=== PATIENT | female | born 1980 | race African-American/Black ===

== ENCOUNTER 2016-11-24 11:52 | Emergency (ER) | payer BC ==
[~2016-11-24] VITALS: Ht 172.7 cm; Wt 84.0 kg
[2016-11-24] MEDS ORDERED: HYDROCODONE/ACETAMINOPHEN 5/325MG TABLET PO ONE (13:45)
[2016-11-24] MEDS ORDERED: MORPHINE SULFATE 10 MG/ML CPJ IM ONE (14:45)
[2016-11-24] MEDS ORDERED: ONDANSETRON HCL 4MG/2ML VIAL IM ONE (14:45)
[2016-11-24 15:52] VITALS: BP 124/93
== END 2016-11-24 16:00 | disposition home or self-care (01) ==
LOC: ER 14:47
DX: M54.42 Lumbago with sciatica, left side (principal); M54.41 Lumbago with sciatica, right side; M19.90 Unspecified osteoarthritis, unspecified site; M79.7 Fibromyalgia
CPT/HCPCS: 81025; 96372; 99284; J2270; J2405

== ENCOUNTER 2017-03-04 12:51 | Emergency (ER) | payer BC ==
[~2017-03-04] VITALS: Ht 172.7 cm; Wt 78.0 kg
[2017-03-04] MEDS ORDERED: KETOROLAC 60MG/2ML VIAL IM ONE (14:30)
[2017-03-04] MEDS ORDERED: CYCLOBENZAPRINE 10MG TABLET PO ONE (14:30)
[2017-03-04] MEDS ORDERED: ONDANSETRON 4MG ODT PO ONE (14:45)
[2017-03-04] MEDS ORDERED: MORPHINE SULFATE 10 MG/ML CPJ IM ONE (14:45)
[2017-03-04 15:19] VITALS: BP 124/85
== END 2017-03-04 16:22 | disposition home or self-care (01) ==
LOC: ER 12:51
DX: M54.40 Lumbago with sciatica, unspecified side (principal)
CPT/HCPCS: 96372; 99283; J2270; Q0162; Z7610

== ENCOUNTER 2017-04-26 15:04 | Emergency (ER) | payer BC ==
[~2017-04-26] VITALS: Ht 172.7 cm; Wt 82.0 kg
[2017-04-26 15:45] VITALS: BP 124/79
== END 2017-04-26 19:15 | disposition left against medical advice (07) ==
LOC: ER 15:04
DX: Z53.21 Procedure and treatment not carried out due to patient leaving prior to being seen by health care provider (principal)

== ENCOUNTER 2017-04-27 06:36 | Emergency (ER) | payer BC ==
[~2017-04-27] VITALS: Ht 172.7 cm; Wt 82.0 kg
[2017-04-27] MEDS ORDERED: MORPHINE SULFATE 4 MG/ML CPJ (NOT FOR IM USE) IV STA (10:37)
[2017-04-27] MEDS ORDERED: SODIUM CHLORIDE 0.9% 1,000 ML IV ONE (10:37)
[2017-04-27] MEDS ORDERED: ONDANSETRON HCL 4MG/2ML VIAL IV STA (10:37)
[2017-04-27 11:02] LABS: BASOPHILS % 0.7 % (0.0-2.0); EOSINOPHILS % 0.4 % (0.0-5.0); HEMATOCRIT. 30.7 % (36.0-48.0); HEMOGLOBIN. 9.7 g/dL (12.0-16.0); LYMPHOCYTES % 22.4 % (20.0-50.0); MEAN CORPUSCULAR HEMOGLOBIN 22.2 pg (28.0-32.0); MEAN CORPUSCULAR VOLUME 70.3 fL (81.0-99.0); MONOCYTES % 7.2 % (2.0-8.0); NEUTROPHILS % 69.3 % (40.0-76.0); PLATELET 217 x1000/uL (130-400); RED BLOOD CELL COUNT 4.37 mill/uL (4.2-5.4)
[2017-04-27 11:08] LABS: PROTHROMBIN TIME 10.7 sec (9.4-11.6)
[2017-04-27 11:13] LABS: HCG SCREEN POSITIVE
[2017-04-27 11:15] LABS: CARBON DIOXIDE 24 mEq/L (21-32); CHLORIDE 106 mEq/L (98-107)
[2017-04-27 12:03] LABS: CLARITY URINE CLEAR (CLEAR); COLOR URINE YELLOW (YELLOW); GLUCOSE URINE NEGATIVE (NEGATIVE); KETONES URINE NEGATIVE (NEGATIVE); LEUKOCYTE ESTERASE URINE TRACE (NEGATIVE); NITRITE URINE NEGATIVE (NEGATIVE); OCCULT BLOOD URINE NEGATIVE (NEGATIVE); PH URINE 7.5 (4.5-8.0); PROTEIN URINE NEGATIVE (NEGATIVE); SPECIFIC GRAVITY URINE 1.008 (1.005-1.030); UROBILINOGEN URINE 0.2 E.U./dL (0.2-1.0)
[2017-04-27 12:05] VITALS: BP 110/74
[2017-04-27 12:22] LABS: *AMPHETAMINES SCREEN URINE NEGATIVE (NEGATIVE); *BARBITURATES SCREEN URINE NEGATIVE (NEGATIVE); *BENZODIAZEPINES SCREEN URINE NEGATIVE (NEGATIVE); *COCAINE SCREEN URINE NEGATIVE (NEGATIVE); CANNABINOID URINE SCREEN NEGATIVE (NEGATIVE); METHADONE URINE SCREEN NEGATIVE (NEGATIVE); PHENCYCLIDINE URINE SCREEN NEGATIVE (NEGATIVE)
[2017-04-27 12:23] LABS: OPIATES URINE SCREEN PRESUMTIVE POSITIVE (NEGATIVE)
== END 2017-04-27 13:55 | disposition home or self-care (01) ==
LOC: ER 07:05
DX: O99.011 Anemia complicating pregnancy, first trimester (principal); D64.9 Anemia, unspecified; M79.1 Myalgia; Z3A.10 10 weeks gestation of pregnancy
CPT/HCPCS: 36415; 80053; 80305; 81001; 83690; 84703; 85025; 85044; 85610; 96361; 96374; 96375; 99284; J2270; J2405; J7030; Z7610

== ENCOUNTER 2017-05-07 14:29 | Emergency (ER) | payer BC ==
[~2017-05-07] VITALS: Ht 172.7 cm; Wt 90.0 kg
[2017-05-07] MEDS ORDERED: SODIUM CHLORIDE 0.9% 1,000 ML IV ONE ×2 (17:32→20:21)
[2017-05-07] MEDS ORDERED: ONDANSETRON HCL 4MG/2ML VIAL IV ONE (17:45)
[2017-05-07] MEDS ORDERED: MORPHINE SULFATE 10 MG/ML CPJ IV ONE ×2 (17:45→20:30)
[2017-05-07 18:01] LABS: BASOPHILS % 0.9 % (0.0-2.0); EOSINOPHILS % 1.1 % (0.0-5.0); HEMATOCRIT. 28.2 % (36.0-48.0); HEMOGLOBIN. 9.4 g/dL (12.0-16.0); LYMPHOCYTES % 27.1 % (20.0-50.0); MEAN CORPUSCULAR HEMOGLOBIN 23.4 pg (28.0-32.0); MEAN CORPUSCULAR VOLUME 70.3 fL (81.0-99.0); MEAN PLATELET VOLUME 8.5 fl (7.4-10.4); MONOCYTES % 7.1 % (2.0-8.0); NEUTROPHILS % 63.8 % (40.0-76.0); PLATELET 227 x1000/uL (130-400); RED BLOOD CELL COUNT 4.01 mill/uL (4.2-5.4); RED CELL DISTRIBUTION WIDTH 18.7 % (11.6-14.6)
[2017-05-07 18:01] LABS: CLARITY URINE CLEAR (CLEAR); COLOR URINE YELLOW (YELLOW); GLUCOSE URINE NEGATIVE (NEGATIVE); KETONES URINE NEGATIVE (NEGATIVE); LEUKOCYTE ESTERASE URINE TRACE (NEGATIVE); NITRITE URINE NEGATIVE (NEGATIVE); OCCULT BLOOD URINE NEGATIVE (NEGATIVE); PH URINE 6.5 (4.5-8.0); PROTEIN URINE NEGATIVE (NEGATIVE); SPECIFIC GRAVITY URINE 1.019 (1.005-1.030); UROBILINOGEN URINE 0.2 E.U./dL (0.2-1.0)
[2017-05-07 18:08] LABS: PROTHROMBIN TIME 10.6 sec (9.4-11.6)
[2017-05-07 18:15] LABS: CARBON DIOXIDE 21 mEq/L (21-32); CHLORIDE 108 mEq/L (98-107)
[2017-05-07 18:17] LABS: TROPONIN I < 0.02 ng/mL (0.00-0.04)
[2017-05-07 18:46] LABS: B-HCG QUANTITATIVE 38222 mIU/mL (<3)
[2017-05-07] MEDS ORDERED: ONDANSETRON HCL 4MG/2ML VIAL IV STA (20:21)
[2017-05-07] MEDS ORDERED: BUTORPHANOL TARTRATE 2 MG/ML VIAL IV STA (20:21)
[2017-05-07 22:00] VITALS: BP 118/74
[2017-05-07] MEDS ORDERED: NITROFURANTOIN 100MG M/M CAPSULE PO ONE (22:00)
== END 2017-05-07 22:00 | disposition home or self-care (01) ==
LOC: ER 17:00
DX: O20.0 Threatened abortion (principal); O99.011 Anemia complicating pregnancy, first trimester; D57.00 Hb-SS disease with crisis, unspecified; O23.41 Unspecified infection of urinary tract in pregnancy, first trimester; O26.891 Other specified pregnancy related conditions, first trimester; M19.90 Unspecified osteoarthritis, unspecified site; Z3A.13 13 weeks gestation of pregnancy; Z88.6 Allergy status to analgesic agent
CPT/HCPCS: 36415; 76801; 76817; 80053; 81001; 83690; 83880; 84484; 84702; 85025; 85044; 85610; 86850; 86900; 86901; 96361; 96365; 96366; 96375; 96376; 99285; J0595; J2270; J2405; J7030; Z7610

== ENCOUNTER 2017-05-14 18:16 | Emergency (ER) | payer BC ==
[~2017-05-14] VITALS: Ht 172.7 cm; Wt 54.0 kg
[2017-05-14] MEDS ORDERED: SODIUM CHLORIDE 0.9% 1,000 ML IV ONE ×2 (18:42→21:58)
[2017-05-14] MEDS ORDERED: ONDANSETRON HCL 4MG/2ML VIAL IV STA (18:49)
[2017-05-14] MEDS ORDERED: MORPHINE SULFATE 4 MG/ML CPJ (NOT FOR IM USE) IV STA (18:49)
[2017-05-14 19:03] LABS: BASOPHILS % 0.5 % (0.0-2.0); EOSINOPHILS % 0.5 % (0.0-5.0); HEMATOCRIT. 29.6 % (36.0-48.0); HEMOGLOBIN. 9.6 g/dL (12.0-16.0); LYMPHOCYTES % 18.8 % (20.0-50.0); MEAN CORPUSCULAR HEMOGLOBIN 22.8 pg (28.0-32.0); MEAN CORPUSCULAR VOLUME 70.7 fL (81.0-99.0); MEAN PLATELET VOLUME 8.7 fl (7.4-10.4); NEUTROPHILS % 71.2 % (40.0-76.0); PLATELET 283 x1000/uL (130-400); RED BLOOD CELL COUNT 4.19 mill/uL (4.2-5.4); RED CELL DISTRIBUTION WIDTH 19.1 % (11.6-14.6)
[2017-05-14 19:12] LABS: CARBON DIOXIDE 26 mEq/L (21-32); CHLORIDE 106 mEq/L (98-107)
[2017-05-14 19:20] LABS: HCG SCREEN POSITIVE
[2017-05-14 19:32] LABS: CLARITY URINE CLEAR (CLEAR); COLOR URINE YELLOW (YELLOW); GLUCOSE URINE NEGATIVE (NEGATIVE); KETONES URINE TRACE (NEGATIVE); LEUKOCYTE ESTERASE URINE NEGATIVE (NEGATIVE); NITRITE URINE NEGATIVE (NEGATIVE); OCCULT BLOOD URINE NEGATIVE (NEGATIVE); PH URINE 6.5 (4.5-8.0); PROTEIN URINE NEGATIVE (NEGATIVE); SPECIFIC GRAVITY URINE 1.025 (1.005-1.030)
[2017-05-14] MEDS ORDERED: MORPHINE SULFATE 4 MG/ML CPJ (NOT FOR IM USE) IV ONE (20:45)
[2017-05-14] MEDS ORDERED: ACETAMINOPHEN WITH CODEINE 300/30MG TABLET PO ONE (22:00)
[2017-05-15] MEDS ORDERED: MORPHINE SULFATE 4 MG/ML CPJ (NOT FOR IM USE) IV ONE
[2017-05-15 03:30] VITALS: BP 118/76
[2017-05-20] MEDS ORDERED: SODIUM CHLORIDE 0.45% 1,000 ML IV SCH (22:17)
[2017-05-20] MEDS ORDERED: ACETAMINOPHEN 325MG TABLET PO PRN (22:30)
[2017-05-20] MEDS ORDERED: MAGNESIUM/ALUMINUM HYDROXIDE/SIMETHICONE 30ML UDC PO PRN (22:30)
[2017-05-20] MEDS ORDERED: ACETAMINOPHEN 650MG SUPP PR PRN (22:30)
[2017-05-20] MEDS ORDERED: DIPHENHYDRAMINE 50MG/ML VIAL IV PRN (22:30)
[2017-05-20] MEDS ORDERED: ACETAMINOPHEN 650MG/20.3ML UDC GT PRN (22:30)
[2017-05-20] MEDS ORDERED: DOCUSATE SODIUM 100MG CAPSULE PO PRN (22:30)
[2017-05-20] MEDS ORDERED: NA PHOS,M-B/NA PHOS,DI-BA ENEMA 118ML PR PRN (22:30)
[2017-05-20] MEDS ORDERED: IPRATROPIUM/ALBUTEROL 0.5-3(2.5)MG/3ML NEB INH PRN (22:30)
[2017-05-20] MEDS ORDERED: GUAIFENESIN 200MG/10ML SUGAR FREE UDC PO PRN (22:30)
[2017-05-21] MEDS ORDERED: SODIUM CHLORIDE 0.9% INJ 3ML FLUSH IVF SCH (06:00)
== END 2017-05-15 05:31 | disposition left against medical advice (07) ==
LOC: ER 18:16
DX: O99.011 Anemia complicating pregnancy, first trimester (principal); D57.00 Hb-SS disease with crisis, unspecified; O26.891 Other specified pregnancy related conditions, first trimester; M19.90 Unspecified osteoarthritis, unspecified site; M79.7 Fibromyalgia; Z3A.14 14 weeks gestation of pregnancy
CPT/HCPCS: 36415; 76815; 80048; 81003; 84702; 84703; 85025; 85044; 93005; 96361; 96374; 96375; 96376; 99285; J2270; J2405; J7030

== ENCOUNTER 2018-02-11 23:38 | Emergency (ER) | payer BC ==
[~2018-02-11] VITALS: Ht 172.7 cm; Wt 86.0 kg
[2018-02-12] MEDS ORDERED: SODIUM CHLORIDE 0.9% 1,000 ML IV ONE (00:35)
[2018-02-12] MEDS ORDERED: MORPHINE SULFATE 4 MG/ML CPJ (NOT FOR IM USE) IV STA (00:35)
[2018-02-12 01:34] LABS: HEMATOCRIT. 29.7 % (36.0-48.0); HEMOGLOBIN. 9.2 g/dL (12.0-16.0); LYMPHOCYTES % 34.3 % (20.0-50.0); MEAN CORPUSCULAR HEMOGLOBIN 20.7 pg (28.0-32.0); MEAN CORPUSCULAR VOLUME 66.6 fL (81.0-99.0); MEAN PLATELET VOLUME 9.4 fl (7.4-10.4); MONOCYTES % 8.3 % (2.0-8.0); NEUTROPHILS % 53.4 % (40.0-76.0); PLATELET 290 x1000/uL (130-400); RED BLOOD CELL COUNT 4.46 mill/uL (4.2-5.4); RED CELL DISTRIBUTION WIDTH 19.3 % (11.6-14.6)
[2018-02-12 01:39] LABS: CHLORIDE 105 mEq/L (98-107)
[2018-02-12 01:41] LABS: PARTIAL THROMBOPLASTIN TIME 25.7 sec (23.4-31.0); PROTHROMBIN TIME 10.7 sec (9.4-11.6)
[2018-02-12 02:16] LABS: PLATELET ESTIMATE NORMAL
[2018-02-12] MEDS ORDERED: POTASSIUM CHLORIDE 20MEQ TABLET SR PO NR (02:45)
[2018-02-12] MEDS ORDERED: KETOROLAC 30MG/ML VIAL IV ONE (03:30)
[2018-02-12 03:32] VITALS: BP 133/86
== END 2018-02-12 08:23 | disposition home or self-care (01) ==
LOC: ER 02-12 08:18
DX: Z76.5 Malingerer [conscious simulation] (principal); G89.29 Other chronic pain; D57.1 Sickle-cell disease without crisis; M79.7 Fibromyalgia; M19.90 Unspecified osteoarthritis, unspecified site; Z88.8 Allergy status to other drugs, medicaments and biological substances
CPT/HCPCS: 36415; 80053; 85025; 85044; 85610; 85730; 96374; 96375; 99285; J1885; J2270; J7030; Z7610

== ENCOUNTER 2019-01-20 20:31 | Emergency (ER) | payer BC ==
[~2019-01-20] VITALS: Ht 172.7 cm; Wt 83.0 kg
[2019-01-20] MEDS ORDERED: MORPHINE SULFATE 4 MG/ML CPJ (NOT FOR IM USE) IV STA (22:50)
[2019-01-20] MEDS ORDERED: ONDANSETRON HCL 4MG/2ML INJ IV STA (22:50)
[2019-01-20] MEDS ORDERED: SODIUM CHLORIDE 0.9% 1,000 ML IV ONE (22:50)
[2019-01-21 00:09] LABS: CHLORIDE 108 mEq/L (98-107)
[2019-01-21 00:10] LABS: BASOPHILS % 2.3 % (0.0-2.0); HEMATOCRIT. 32.8 % (36.0-48.0); HEMOGLOBIN. 10.3 g/dL (12.0-16.0); LYMPHOCYTES % 41.6 % (20.0-50.0); MEAN CORPUSCULAR HEMOGLOBIN 21.2 pg (28.0-32.0); MEAN CORPUSCULAR VOLUME 67.6 fL (81.0-99.0); MEAN PLATELET VOLUME 9.9 fl (7.4-10.4); MONOCYTES % 9.2 % (2.0-8.0); NEUTROPHILS % 44.9 % (40.0-76.0); PLATELET 236 x1000/uL (130-400); RED BLOOD CELL COUNT 4.85 mill/uL (4.2-5.4); RED CELL DISTRIBUTION WIDTH 19.3 % (11.6-14.6)
[2019-01-21 00:15] LABS: CLARITY URINE CLEAR (CLEAR); COLOR URINE YELLOW (YELLOW); KETONES URINE NEGATIVE (NEGATIVE); LEUKOCYTE ESTERASE URINE NEGATIVE (NEGATIVE); NITRITE URINE NEGATIVE (NEGATIVE); OCCULT BLOOD URINE NEGATIVE (NEGATIVE); PROTEIN URINE NEGATIVE (NEGATIVE); SPECIFIC GRAVITY URINE 1.025 (1.005-1.030)
[2019-01-21 00:25] LABS: HCG SCREEN NEGATIVE
[2019-01-21 00:32] LABS: *BARBITURATES SCREEN URINE NEGATIVE (NEGATIVE); *COCAINE SCREEN URINE NEGATIVE (NEGATIVE); METHADONE URINE SCREEN NEGATIVE (NEGATIVE)
[2019-01-21 00:33] LABS: *AMPHETAMINES SCREEN URINE NEGATIVE (NEGATIVE); CANNABINOID URINE SCREEN NEGATIVE (NEGATIVE); OPIATES URINE SCREEN NEGATIVE (NEGATIVE)
[2019-01-21 00:34] LABS: PHENCYCLIDINE URINE SCREEN NEGATIVE (NEGATIVE)
[2019-01-21 00:37] LABS: *BENZODIAZEPINES SCREEN URINE PRESUMTIVE POSITIVE (NEGATIVE)
[2019-01-21] MEDS ORDERED: MORPHINE SULFATE 4 MG/ML CPJ (NOT FOR IM USE) IV ONE (00:45)
[2019-01-21 02:37] VITALS: BP 130/94
== END 2019-01-21 02:43 | disposition home or self-care (01) ==
LOC: ER 20:31
DX: D57.00 Hb-SS disease with crisis, unspecified (principal); M79.7 Fibromyalgia; Z98.890 Other specified postprocedural states; Z88.8 Allergy status to other drugs, medicaments and biological substances
CPT/HCPCS: 36415; 80053; 80305; 81003; 81025; 84703; 85025; 85044; 96374; 96375; 96376; 99283; J2270; J2405; J7030

== ENCOUNTER 2019-09-10 22:27 | Emergency (ER) | payer BC ==
[~2019-09-10] VITALS: Ht 172.7 cm; Wt 82.0 kg
[2019-09-10] MEDS ORDERED: MORPHINE SULFATE 4 MG/ML CPJ (NOT FOR IM USE) IV ONE (23:45)
[2019-09-11] MEDS ORDERED: MORPHINE SULFATE 4 MG/ML CPJ (NOT FOR IM USE) IV ONE (01:15)
[2019-09-11 02:15] VITALS: BP 112/80
== END 2019-09-11 02:21 | disposition home or self-care (01) ==
LOC: ER 22:27
DX: M79.672 Pain in left foot (principal); D57.00 Hb-SS disease with crisis, unspecified; M79.7 Fibromyalgia; Z88.6 Allergy status to analgesic agent
CPT/HCPCS: 73630; 96374; 96375; 99284; J2270

== ENCOUNTER 2019-09-25 21:54 | Emergency (ER) | payer BC ==
[~2019-09-25] VITALS: Ht 172.7 cm; Wt 84.0 kg
[2019-09-26] MEDS ORDERED: SODIUM CHLORIDE 0.9% 1,000 ML IV ONE (06:31)
[2019-09-26 06:39] LABS: BASOPHILS % 1.1 % (0.0-2.0); EOSINOPHILS % 0.7 % (0.0-5.0); HEMATOCRIT. 32.9 % (36.0-48.0); HEMOGLOBIN. 10.2 g/dL (12.0-16.0); LYMPHOCYTES % 43.8 % (20.0-50.0); MEAN CORPUSCULAR HEMOGLOBIN 21.1 pg (28.0-32.0); MEAN CORPUSCULAR VOLUME 67.9 fL (81.0-99.0); MONOCYTES % 6.9 % (2.0-8.0); NEUTROPHILS % 47.5 % (40.0-76.0); PLATELET 297 x1000/uL (130-400); RED BLOOD CELL COUNT 4.85 mill/uL (4.2-5.4); RED CELL DISTRIBUTION WIDTH 17.5 % (11.6-14.6)
[2019-09-26 06:45] LABS: CHLORIDE 105 mEq/L (98-107)
[2019-09-26] MEDS ORDERED: MORPHINE SULFATE 4 MG/ML CPJ (NOT FOR IM USE) IV ONE ×2 (06:45→08:30)
[2019-09-26 07:03] LABS: PLATELET ESTIMATE NORMAL
[2019-09-26 10:20] VITALS: BP 142/97
== END 2019-09-26 10:30 | disposition home or self-care (01) ==
LOC: ER 21:54
DX: D57.00 Hb-SS disease with crisis, unspecified (principal); R03.0 Elevated blood-pressure reading, without diagnosis of hypertension; R50.9 Fever, unspecified; R05 Cough
CPT/HCPCS: 36415; 71045; 80053; 81025; 85025; 85610; 85660; 86850; 86900; 86901; 99284; J2270; J7030

== ENCOUNTER 2021-01-05 15:35 | Emergency (ER) | payer BC ==
[~2021-01-05] VITALS: Ht 172.7 cm; Wt 86.0 kg
[2021-01-05 15:54] VITALS: BP 124/94
[2021-01-05] MEDS ORDERED: ONDANSETRON HCL 4MG/2ML INJ IV STA (16:07)
[2021-01-05] MEDS ORDERED: MORPHINE SULFATE 4 MG/ML CPJ (NOT FOR IM USE) IV STA (16:07)
[2021-01-05] MEDS ORDERED: SODIUM CHLORIDE 0.9% 1,000 ML IV ONE (16:15)
[2021-01-05 16:44] LABS: *AMPHETAMINES SCREEN URINE NEGATIVE (NEGATIVE); *BARBITURATES SCREEN URINE NEGATIVE (NEGATIVE); *COCAINE SCREEN URINE NEGATIVE (NEGATIVE); METHADONE URINE SCREEN NEGATIVE (NEGATIVE)
[2021-01-05 16:45] LABS: CANNABINOID URINE SCREEN NEGATIVE (NEGATIVE); PHENCYCLIDINE URINE SCREEN NEGATIVE (NEGATIVE)
[2021-01-05 17:00] LABS: *BENZODIAZEPINES SCREEN URINE PRESUMTIVE POSITIVE (NEGATIVE); OPIATES URINE SCREEN PRESUMTIVE POSITIVE (NEGATIVE)
[2021-01-05 17:27] LABS: CHLORIDE 109 mEq/L (98-107); EOSINOPHILS % 3.1 % (0.0-5.0); HEMATOCRIT. 28.1 % (36.0-48.0); HEMOGLOBIN. 8.9 g/dL (12.0-16.0); LYMPHOCYTES % 43.9 % (20.0-50.0); MEAN CORPUSCULAR HEMOGLOBIN 19.9 pg (28.0-32.0); MEAN CORPUSCULAR VOLUME 63.3 fL (81.0-99.0); MEAN PLATELET VOLUME 8.9 fl (7.4-10.4); MONOCYTES % 6.1 % (2.0-8.0); NEUTROPHILS % 44.9 % (40.0-76.0); PLATELET 407 x1000/uL (130-400); RED BLOOD CELL COUNT 4.44 mill/uL (4.2-5.4); RED CELL DISTRIBUTION WIDTH 20.3 % (11.6-14.6)
[2021-01-05 17:32] LABS: ETHANOL BLOOD < 10 mg/dL
[2021-01-05 18:19] LABS: PLATELET ESTIMATE INCREASED
== END 2021-01-05 19:09 | disposition home or self-care (01) ==
LOC: ER 15:35
DX: M79.10 Myalgia, unspecified site (principal); I49.9 Cardiac arrhythmia, unspecified; Z88.6 Allergy status to analgesic agent
CPT/HCPCS: 36415; 80053; 80305; 80320; 83615; 83880; 84484; 85025; 85044; 86850; 86900; 86901; 93005; 99284; J7030; G0480

== ENCOUNTER 2021-01-05 19:49 | Emergency (ER) | payer BC ==
[~2021-01-05] VITALS: Ht 172.7 cm; Wt 86.0 kg
[2021-01-05] MEDS ORDERED: SODIUM CHLORIDE 0.9% 1,000 ML IV ONE (21:15)
[2021-01-05] MEDS ORDERED: MORPHINE SULFATE 4 MG/ML CPJ (NOT FOR IM USE) IV ONE ×2 (21:30→23:45)
[2021-01-06 00:59] VITALS: BP 110/80
== END 2021-01-06 01:13 | disposition home or self-care (01) ==
LOC: ER 19:49
DX: D57.00 Hb-SS disease with crisis, unspecified (principal); D64.9 Anemia, unspecified; M79.7 Fibromyalgia; I49.8 Other specified cardiac arrhythmias; Z88.6 Allergy status to analgesic agent
CPT/HCPCS: 93005; 96361; 96374; 96376; 99284; J2270; J7030

== ENCOUNTER 2021-02-25 01:29 | Emergency (ER) | payer BC ==
[~2021-02-25] VITALS: Ht 172.7 cm; Wt 87.0 kg
[2021-02-25] MEDS ORDERED: SODIUM CHLORIDE 0.9% 1,000 ML IV ONE (03:00)
[2021-02-25] MEDS ORDERED: MORPHINE SULFATE 4 MG/ML CPJ (NOT FOR IM USE) IV ONE (03:00)
[2021-02-25 03:24] LABS: HEMATOCRIT 29.6 % (36.0-48.0); HEMOGLOBIN 9.3 g/dL (12.0-16.0); MEAN CORPUSCULAR HEMOGLOBIN 20.4 pg (28.0-32.0); PLATELET 195 x1000/uL (130-400); RED BLOOD CELL COUNT 4.55 mill/uL (4.2-5.4)
[2021-02-25 03:27] LABS: CHLORIDE 108 mEq/L (98-107)
[2021-02-25] MEDS ORDERED: MORPHINE SULFATE 2 MG/ML CPJ (NOT FOR IM USE) IV ONE (04:00)
[2021-02-25 04:45] VITALS: BP 125/84
== END 2021-02-25 05:00 | disposition home or self-care (01) ==
LOC: ER 02:01
DX: D57.00 Hb-SS disease with crisis, unspecified (principal); M79.7 Fibromyalgia
CPT/HCPCS: 36415; 80053; 85027; 85044; 96374; 96376; 99284; J2270

== ENCOUNTER 2021-09-11 14:54 | Emergency (ER) | payer BC ==
[~2021-09-11] VITALS: Ht 172.7 cm; Wt 90.0 kg
[2021-09-11] MEDS ORDERED: MORPHINE SULFATE 4 MG/ML CPJ (NOT FOR IM USE) IV STA (15:36)
[2021-09-11] MEDS ORDERED: ONDANSETRON HCL 4MG/2ML INJ IV STA (15:36)
[2021-09-11] MEDS ORDERED: SODIUM CHLORIDE 0.9% 1,000 ML IV ONE (15:45)
[2021-09-11 16:10] LABS: CLARITY URINE CLEAR (CLEAR); COLOR URINE DARK YELLOW (YELLOW); KETONES URINE 1+ (NEGATIVE); LEUKOCYTE ESTERASE URINE NEGATIVE (NEGATIVE); NITRITE URINE NEGATIVE (NEGATIVE); OCCULT BLOOD URINE NEGATIVE (NEGATIVE); PROTEIN URINE TRACE (NEGATIVE); SPECIFIC GRAVITY URINE 1.027 (1.005-1.030); UROBILINOGEN URINE 0.2 E.U./dL (0.2-1.0)
[2021-09-11 16:17] LABS: EOSINOPHILS % 0.8 % (0.0-5.0); HEMATOCRIT. 33.2 % (36.0-48.0); HEMOGLOBIN. 10.4 g/dL (12.0-16.0); LYMPHOCYTES % 36.6 % (20.0-50.0); MEAN CORPUSCULAR HEMOGLOBIN 20.7 pg (28.0-32.0); MEAN PLATELET VOLUME 9.4 fl (7.4-10.4); MONOCYTES % 5.6 % (2.0-8.0); PLATELET 327 x1000/uL (130-400); RED BLOOD CELL COUNT 5.03 mill/uL (4.2-5.4); RED CELL DISTRIBUTION WIDTH 18.9 % (11.6-14.6)
[2021-09-11 16:19] LABS: CHLORIDE 108 mEq/L (98-107)
[2021-09-11 16:33] LABS: HCG SCREEN NEGATIVE
[2021-09-11] MEDS ORDERED: DIPHENHYDRAMINE 50MG/ML VIAL IV ONE (17:00)
[2021-09-11 17:35] LABS: PLATELET ESTIMATE NORMAL
[2021-09-11] MEDS ORDERED: MORPHINE SULFATE 10 MG/ML CPJ IV ONE (17:45)
[2021-09-11 18:58] VITALS: BP 123/87
== END 2021-09-11 18:58 | disposition home or self-care (01) ==
LOC: ER 14:54
DX: D57.00 Hb-SS disease with crisis, unspecified (principal); M79.7 Fibromyalgia; G89.29 Other chronic pain; I49.8 Other specified cardiac arrhythmias; I10 Essential (primary) hypertension
CPT/HCPCS: 36415; 80053; 81003; 81025; 83690; 84703; 85025; 85044; 93005; 96361; 96374; 96375; 96376; 99284; J1200; J2270; J2405; J7030